=== PATIENT | female | born 1945 | race Caucasian/White ===

== ENCOUNTER 2024-04-11 07:15 | Observation (INO) | payer MEDICARE ==
[~2024-04-11] VITALS: Ht 160 cm; Wt 61.2 kg
[~2024-04-11 07:15] MED LIST: PANT40TA29 PO; ROSU40TA63 PO; VIBE75TA PO; XANA1TAB2 PO
[2024-04-11] MEDS ORDERED: LIDOCAINE 2% 100MG/5ML SDV (FOR ANES.) As Ordered ONE (08:59)
[2024-04-11] MEDS ORDERED: propofoL 200 MG/20 ML VIAL As Ordered ONE (08:59)
[2024-04-11] MEDS ORDERED: ONDANSETRON 4MG 2ML VIAL As Ordered ONE (08:59)
[2024-04-11] MEDS ORDERED: ROCURONIUM BROMIDE 50MG/5ML VIAL As Ordered ONE (08:59)
[2024-04-11] MEDS ORDERED: dexmedeTOMIDine (4MCG/ML)200MCG/50ML BTL (PRECEDEX) As Ordered ONE (08:59)
[2024-04-11] MEDS ORDERED: SUGAMMADEX SODIUM 500 MG/5 ML VIAL (BRIDION) As Ordered ONE (08:59)
[2024-04-11] MEDS ORDERED: MIDAZOLAM INJ 2MG/2ML VIAL As Ordered ONE (09:00)
[2024-04-11] MEDS ORDERED: fentaNYL 250 MCG/5 ML INJECTION As Ordered ONE (09:00)
[2024-04-11] MEDS: CLINDAMYCIN 900 MG in IV 1 EA IV ONE ×2 (12:08→18:17)
[2024-04-11] MEDS: HEPARIN SOD (PORCINE) 5000UNITS/ML 1ML VIAL/SYRINGE SQ ONE (12:10)
[2024-04-11] MEDS: GENTAMICIN SULF 80MG/2ML VIAL As Ordered ONE (12:36)
[2024-04-11] MEDS ORDERED: PHENYLephrine 500MCG 5ML (100MCG/ML) SYRINGE As Ordered ONE (12:43)
[2024-04-11] MEDS ORDERED: ACETAMINOPHEN 1000MG 100ML IV BAG As Ordered ONE (12:49)
[2024-04-11] MEDS ORDERED: ePHEDrine SULFATE 25 MG/5 ML(5MG/ML) SYRINGE As Ordered ONE (13:03)
[2024-04-11] MEDS ORDERED: HYDROmorphone HCL 2MG/ML 1ML VIAL As Ordered ONE (13:44)
[2024-04-11] MEDS ORDERED: ESMOLOL INJ 100MG/10ML VIAL As Ordered ONE (13:57)
[2024-04-11] MEDS ORDERED: ACETAMINOPHEN TAB 650MG DOSE (2X325MG) PO PRN (15:50)
[2024-04-11] MEDS ORDERED: traMADol 50 MG TAB PO PRN (15:50)
[2024-04-11] MEDS ORDERED: ONDANSETRON 4MG 2ML VIAL IV PRN ×2 (15:50→15:55)
[2024-04-11] MEDS ORDERED: HYDROMORPHONE HCL 0.5 MG/ 0.5 ML SYRINGE IV PRN (15:55)
[2024-04-11] MEDS: LR 1,000 ML IV SCH ×2 (15:55→18:16)
[2024-04-11] MEDS ORDERED: fentaNYL 100 MCG/2 ML INJECTION IV PRN (15:55)
[2024-04-11] MEDS: oxyCODONE 5MG TAB PO PRN (16:30)
[2024-04-11 17:00] VITALS: BP 114/58; TEMP 97.5; O2SAT 99
[2024-04-11 17:30] VITALS: BP 125/67; TEMP 97.2; O2SAT 98
[2024-04-11 18:30] VITALS: BP 115/66; TEMP 97.5; O2SAT 98
[2024-04-11 20:00] VITALS: BP 123/66; TEMP 97.2; O2SAT 99
[2024-04-11 20:35] VITALS: BP 128/68; TEMP 97.6; O2SAT 99
[2024-04-11] MEDS: PERCOCET 5MG/325MG TAB PO PRN (21:16)
[2024-04-11 23:19] VITALS: BP 122/69; TEMP 97.7; O2SAT 95
[2024-04-12 05:20] VITALS: BP 127/73; TEMP 97.7; O2SAT 97
[2024-04-12] MEDS ORDERED: PERCOCET PO (11:28)
== END 2024-04-12 12:47 | disposition home or self-care (01) ==
LOC: M SDC 07:15 → M ED INP 07:16 → M MS5PR 16:45
PROVIDERS: ADMIT Plastic Surgery Surgery of the Hand; ATTEND Plastic Surgery Surgery of the Hand
DX: T85.44XA Capsular contracture of breast implant, initial encounter (principal); T85.41XA Breakdown (mechanical) of breast prosthesis and implant, initial encounter; Y81.2 Prosthetic and other implants, materials and accessory general- and plastic-surgery devices associated with adverse incidents; N32.81 Overactive bladder; K21.9 Gastro-esophageal reflux disease without esophagitis; M17.0 Bilateral primary osteoarthritis of knee; F41.9 Anxiety disorder, unspecified; Z87.891 Personal history of nicotine dependence; Z88.0 Allergy status to penicillin; Z88.2 Allergy status to sulfonamides
CPT/HCPCS: 19370; 88300; 88302; 96374; C9290; G0378; J0131; J0665; J0737; J1100; J1170; J1580; J1805; J2250; J2371; J2405; J3010